=== PATIENT | female | born 1995 | race Caucasian/White ===

== ENCOUNTER 2018-02-05 17:42 | Emergency (ER) | payer OTHER ==
[2018-02-05 17:57] VITALS: RESP 18
[2018-02-05 18:54] LABS: Basophils % (A) 0 %; Eosinophils % (A) 1 %; HCT 38.2 % (34.0-46.0); HGB 13.2 gm/dL (11.4-16.0); Lymphocytes # (A) 1.3 k/uL (1.0-4.8); Lymphocytes % (A) 18 %; MCH 29.4 pg (25.0-35.0); MCHC 34.5 g/dL (31.0-37.0); MCV 85.3 fL (80.0-100.0); Mean Platelet Volume 8.1; Monocytes # (A) 0.3 k/uL (0-1.0); Monocytes % (A) 5 %; Neutrophils # (A) 5.4 k/uL (1.3-7.7); Neutrophils % (A) 75 %; Platelet Count 213 k/uL (150-450); RBC 4.48 m/uL (3.80-5.40); RDW 12.8 % (11.5-15.5); WBC 7.1 k/uL (3.8-10.6)
[2018-02-05 18:55] LABS: Appearance,Urine Cloudy (Clear); Bacteria,Urine Occasional /hpf; Bilirubin,Urine Negative (Negative); Blood,Urine Negative (Negative); Color,Urine Yellow; Glucose,Urine (UA) Negative (Negative); Ketones,Urine 2+ (Negative); Leukocyte Esterase,Urine Small (Negative); Mucus,Urine Rare /hpf; Nitrite,Urine Negative (Negative); Protein,Urine Negative (Negative); RBC,Urine 1 /hpf (0-5); Specific Gravity,Urine 1.019 (1.001-1.035); Squamous Epithelial Cell,Urine 11 /hpf (0-4); Urobilinogen,Urine <2.0 mg/dL (<2.0); WBC,Urine 3 /hpf (0-5)
[2018-02-05 19:05] LABS: ALT 28 U/L (9-52); AST 22 U/L (14-36); Albumin 4.3 g/dL (3.5-5.0); Alkaline Phosphatase 56 U/L (38-126); Anion Gap 11 mmol/L; Blood Urea Nitrogen 8 mg/dL (7-17); Calcium 10.3 mg/dL (8.4-10.2); Carbon Dioxide 20 mmol/L (22-30); Chloride 107 mmol/L (98-107); Glucose 81 mg/dL (74-99); Potassium 3.9 mmol/L (3.5-5.1); Sodium 138 mmol/L (137-145); Total Bilirubin 0.5 mg/dL (0.2-1.3); Total Protein 7.3 g/dL (6.3-8.2)
--- NOTE | 2018-02-05 19:06 | US ---
EXAMINATION TYPE: Transabdominal DATE OF EXAM: 09/15/17 COMPARISON: NONE CLINICAL HISTORY: Pain. Cramping, spotting, unknown LMP EXAM PERFORMED: EXAM MEASUREMENTS: GESTATIONAL AGE / DATING Dates by LMP: LMP unknown Dates by Current Scan for: ( 9 weeks/0 days) EDC: 09/10/2018 MATERNAL ANATOMY Uterus: 10.7 x 8.6 x 7.3 cm Right Ovary: 3.0 x 1.4 x 1.4 cm Left Ovary: 3.2 x 1.6 x 1.4 cm Post CDS / Adnexa: no free fluid Presence of free fluid: no Presence of corpus luteal cyst: no Presence of subchorionic bleed: no GESTATION / SURVEY CRL: 2.3 cm (9 weeks/0 days) MSD: seen, not measured Yolk Sac (normal less than 6mm): 3.5 mm Heart Rate: 170 bpm Rhythm: Normal IUP: Viable IUP Date of LMP: Unknown LMP, Beta HcG (if available): Not available at this time Single live IUP measuring 9 weeks 0 days IMPRESSION: The ultrasound gestational age is 9 weeks. No complicating process seen.
--- NOTE | 2018-02-05 19:23 | ED ---
Female Urogenital HPI - General Chief complaint: Vaginal Bleeding Stated complaint: Bleeding/cramping/9 wks Time Seen by Provider: 02/05/18 18:05 Source: patient, RN notes reviewed, old records reviewed Mode of arrival: ambulatory Limitations: no limitations - History of Present Illness Initial comments: 23-year-old female presents emergency department today with chief complaint of cramping. She reports she is in weeks was concerned. She does have some minor vaginal bleeding 2 days ago. Patient has had no fevers or chills. Denies any urinary symptoms. Patient has had no [facility] care to this point. She is planned to see Dr. Shen. - Related Data Allergies Allergy/AdvReac Type Severity Reaction Status Date / Time No Known Allergies Allergy Verified 02/05/18 17:55 Review of Systems ROS Statement: Those systems with pertinent positive or pertinent negative responses have been documented in the HPI. ROS Other: All systems not noted in ROS Statement are negative. Past Medical History Past Medical History: No Reported History History of Any Multi-Drug Resistant Organisms: None Reported Past Surgical History: No Surgical Hx Reported Past Psychological History: No Psychological Hx Reported Smoking Status: Never smoker Past Alcohol Use History: None Reported Past Drug Use History: None Reported General Exam - General Exam Comments Initial Comments: 23-year-old female. Alert and oriented. No acute distress. Limitations: no limitations General appearance: alert, in no apparent distress Head exam: Present: atraumatic, normocephalic, normal inspection Eye exam: Present: normal appearance, PERRL, EOMI. Absent: scleral icterus, conjunctival injection, periorbital swelling ENT exam: Present: normal exam, mucous membranes moist Neck exam: Present: normal inspection. Absent: tenderness, meningismus, lymphadenopathy Respiratory exam: Present: normal lung sounds bilaterally. Absent: respiratory distress, wheezes, rales, rhonchi, stridor Cardiovascular Exam: Present: regular rate, normal rhythm, normal heart sounds. Absent: systolic murmur, diastolic murmur, rubs, gallop, clicks GI/Abdominal exam: Present: soft, normal bowel sounds. Absent: distended, tenderness, guarding, rebound, rigid External exam: Present: normal external exam. Absent: ecchymosis Speculum exam: Present: normal speculum exam. Absent: erythema, vaginal discharge, cervical discharge, foreign body By manual exam: Present: normal by manual exam. Absent: cervical motion tenderness, adnexal tenderness, adnexal mass Extremities exam: Present: normal inspection, full ROM, normal capillary refill. Absent: tenderness, pedal edema, joint swelling, calf tenderness Back exam: Present: normal inspection Neurological exam: Present: alert, oriented X3, CN II-XII intact Psychiatric exam: Present: normal affect, normal mood Skin exam: Present: warm, dry, intact, normal color. 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 She is approximately 9 weeks . Patient is a Patient. Patient has no evidence of bleeding on pelvic exam. No tenderness. Cultures were obtained. Patient does have no abdominal tenderness. Urinalysis is negative for infection. She is Rh- however she has no bleeding at this time. Currently not concern for miscarriage, but with history of bleeding we will give patient Rhogam at this time.. Heart rate was within normal limits of the fetus. This time I'll discharge the Patient follow- up with [facility]. I did call on discussed case with her. Discussed close follow-up with PCP and OB. All QUESTIONS answered return parameters were discussed. - Lab Data Result diagrams: 02/05/18 16:00 02/05/18 16:00 Lab Results 02/05/18 02/05/18 02/05/18 Range/Units 16:00 16:00 16:00 WBC 7.1 (3.8-10.6) k/uL RBC 4.48 (3.80-5.40) m/uL Hgb 13.2 (11.4-16.0) gm/dL Hct 38.2 (34.0-46.0) % MCV 85.3 (80.0-100.0) fL MCH 29.4 (25.0-35.0) pg MCHC 34.5 (31.0-37.0) g/dL RDW 12.8 (11.5-15.5) % Plt Count 213 (150-450) k/uL Neutrophils % 75 % Lymphocytes % 18 % Monocytes % 5 % Eosinophils % 1 % Basophils % 0 % Neutrophils # 5.4 (1.3-7.7) k/uL Lymphocytes # 1.3 (1.0-4.8) k/uL Monocytes # 0.3 (0-1.0) k/uL Eosinophils # 0.0 (0-0.7) k/uL Basophils # 0.0 (0-0.2) k/uL Sodium 138 (137-145) mmol/L Potassium 3.9 (3.5-5.1) mmol/L Chloride 107 (98-107) mmol/L Carbon Dioxide 20 L (22-30) mmol/L Anion Gap 11 mmol/L BUN 8 (7-17) mg/dL Creatinine 0.50 L (0.52-1.04) mg/dL Est GFR (CKD-EPI)AfAm >90 (>60 ml/min/1.73 sqM) Est GFR (CKD-EPI)NonAf >90 (>60 ml/min/1.73 sqM) Glucose 81 (74-99) mg/dL Calcium 10.3 H (8.4-10.2) mg/dL Total Bilirubin 0.5 (0.2-1.3) mg/dL AST 22 (14-36) U/L ALT 28 (9-52) U/L Alkaline Phosphatase 56 (38-126) U/L Total Protein 7.3 (6.3-8.2) g/dL Albumin 4.3 (3.5-5.0) g/dL HCG, Quant >356110.0 mIU/mL Urine Color Urine Appearance (Clear) Urine pH (5.0-8.0) Ur Specific [place] (1.001-1.035) Urine Protein (Negative) Urine Glucose (UA) (Negative) Urine Ketones (Negative) Urine Blood (Negative) Urine Nitrite (Negative) Urine Bilirubin (Negative) Urine Urobilinogen (<2.0) mg/dL Ur Leukocyte Esterase (Negative) Urine RBC (0-5) /hpf Urine WBC (0-5) /hpf Ur Squamous Epith Cells (0-4) /hpf Urine Bacteria (None) /hpf Urine Mucus (None) /hpf Trichomonas Ag (Rapid) (Negative) Blood Type A Negative Blood Type Recheck [facility] ONLY Antibody Screen 02/05/18 02/05/18 02/05/18 Range/Units 16:00 19:30 20:50 WBC (3.8-10.6) k/uL RBC (3.80-5.40) m/uL Hgb (11.4-16.0) gm/dL Hct (34.0-46.0) % MCV (80.0-100.0) fL MCH (25.0-35.0) pg MCHC (31.0-37.0) g/dL RDW (11.5-15.5) % Plt Count (150-450) k/uL Neutrophils % % Lymphocytes % % Monocytes % % Eosinophils % % Basophils % % Neutrophils # (1.3-7.7) k/uL Lymphocytes # (1.0-4.8) k/uL Monocytes # (0-1.0) k/uL Eosinophils # (0-0.7) k/uL Basophils # (0-0.2) k/uL Sodium (137-145) mmol/L Potassium (3.5-5.1) mmol/L Chloride (98-107) mmol/L Carbon Dioxide (22-30) mmol/L Anion Gap mmol/L BUN (7-17) mg/dL Creatinine (0.52-1.04) mg/dL Est GFR (CKD-EPI)AfAm (>60 ml/min/1.73 sqM) Est GFR (CKD-EPI)NonAf (>60 ml/min/1.73 sqM) Glucose (74-99) mg/dL Calcium (8.4-10.2) mg/dL Total Bilirubin (0.2-1.3) mg/dL AST (14-36) U/L ALT (9-52) U/L Alkaline Phosphatase (38-126) U/L Total Protein (6.3-8.2) g/dL Albumin (3.5-5.0) g/dL HCG, Quant mIU/mL Urine Color Yellow Urine Appearance Cloudy H (Clear) Urine pH 6.0 (5.0-8.0) Ur Specific [place] 1.019 (1.001-1.035) Urine Protein Negative (Negative) Urine Glucose (UA) Negative (Negative) Urine Ketones 2+ H (Negative) Urine Blood Negative (Negative) Urine Nitrite Negative (Negative) Urine Bilirubin Negative (Negative) Urine Urobilinogen <2.0 (<2.0) mg/dL Ur Leukocyte Esterase Small H (Negative) Urine RBC 1 (0-5) /hpf Urine WBC 3 (0-5) /hpf Ur Squamous Epith Cells 11 H (0-4) /hpf Urine Bacteria Occasional H (None) /hpf Urine Mucus Rare H (None) /hpf Trichomonas Ag (Rapid) Negative (Negative) Blood Type Blood Type Recheck Antibody Screen NEGATIVE - Radiology Data Radiology results: report reviewed Similar transient measuring 9 weeks. No evidence of palpating process at this time. Disposition Clinical Impression: Abdominal cramping affecting Disposition: HOME SELF-CARE Condition: Good Instructions: Abdominal Pain in (ED) Additional Instructions: Patient has follow-up with [facility]. Patient can repeat her hCG levels there is any further bleeding. Return to emergency department if any alarming signs or symptoms occur. Is patient prescribed a controlled substance at d/c from ED?: No Referrals: None,Stated [Primary Care Provider] - 1-2 days Tal Soria MD [STAFF PHYSICIAN] - 1-2 days Time of Disposition: 19:56
[2018-02-05 20:11] LABS: HCG,Quantitative Serum >225000.0 mIU/mL
[2018-02-05] MEDS ORDERED: Rhogam IMMUNE GLOBULIN 1,500 UNIT/1 ML IM ONE (20:19)
[2018-02-05 21:34] VITALS: BP 141/66; PULSE 77; TEMP 97.8
[2018-02-07 14:10] LABS: C. trachomatis,PCR Negative (Neg,Equiv); Chlamydia trachomatis Source Urine; N. gonorrhoeae,PCR Negative (Neg,Equiv); Neisseria Source Urine
== END 2018-02-05 21:42 | disposition home or self-care (01) ==
LOC: EC 17:42
DX: O26.891 Other specified pregnancy related conditions, first trimester (principal); R10.2 Pelvic and perineal pain; Z67.91 Unspecified blood type, Rh negative; Z3A.09 9 weeks gestation of pregnancy
CPT/HCPCS: 36415; 86900; 86901; 80053; 85025; 86850; 81001; 84702; 87808; 87491; 87591; 87070; 87205; 76801; 99284; 90384; 96372; J2791

== ENCOUNTER 2018-03-26 08:30 | Emergency (ER) | payer OTHER ==
[2018-03-26 08:50] VITALS: RESP 18
--- NOTE | 2018-03-26 09:01 | ED ---
Abdominal Pain HPI - General Chief Complaint: Abdominal Pain Stated Complaint: cramping,16wks preg Time Seen by Provider: 03/26/18 08:51 Source: patient, RN notes reviewed Mode of arrival: ambulatory Limitations: no limitations - History of Present Illness Initial Comments: This a 23-year-old female presents emergency Department chief complaint of lower abdominal pain. She states she had mild pain last night and some pain today. Patient has no vaginal bleeding or vaginal discharge. Patient states that she is 81 states approximate 16 weeks . Her [employer] is Dr. Shen. Patient states that she does have mild dysuria no increased urinary frequency no flank pain no fever or chills. She's had no nausea vomiting diarrhea. She has had mild constipation which is no the usual. - Related Data Home Medications Medication Instructions Recorded Confirmed Pnv No.95/Ferrous Fum/Folic AC 1 tab PO DAILY 03/26/18 03/26/18 [ Multivitamin Tablet] Previous Rx's Medication Instructions Recorded Nitrofurantoin Monohyd/M-Cryst 100 mg PO Q12HR #10 cap 03/26/18 [Macrobid] Allergies Allergy/AdvReac Type Severity Reaction Status Date / Time No Known Allergies Allergy Verified 03/26/18 09:01 Review of Systems ROS Statement: Those systems with pertinent positive or pertinent negative responses have been documented in the HPI. ROS Other: All systems not noted in ROS Statement are negative. Past Medical History Past Medical History: No Reported History History of Any Multi-Drug Resistant Organisms: None Reported Past Surgical History: No Surgical Hx Reported Past Psychological History: No Psychological Hx Reported Smoking Status: Never smoker Past Alcohol Use History: None Reported Past Drug Use History: None Reported General Exam Limitations: no limitations General appearance: alert, in no apparent distress Head exam: Present: atraumatic, normocephalic, normal inspection Eye exam: Present: normal appearance, PERRL, EOMI. Absent: scleral icterus, conjunctival injection, periorbital swelling ENT exam: Present: mucous membranes moist Respiratory exam: Present: normal lung sounds bilaterally. Absent: respiratory distress, wheezes, rales, rhonchi, stridor Cardiovascular Exam: Present: regular rate, normal rhythm, normal heart sounds. Absent: systolic murmur, diastolic murmur, rubs, gallop, clicks GI/Abdominal exam: Present: soft, tenderness (Minimal suprapubic tenderness), normal bowel sounds. Absent: distended, guarding, rebound, rigid Back exam: Absent: CVA tenderness (R), CVA tenderness (L) Skin exam: Present: warm, dry, intact, normal color. Absent: rash Course Vital Signs 03/26/18 08:48 Temperature 98.0 F Pulse Rate 88 Respiratory 18 Rate Blood Pressure 126/78 O2 Sat by Pulse 100 Oximetry Medical Decision Making - Medical Decision Making 23-year-old female presented emergency from for low abdominal . Patient has normal heart rate. Patient has asymptomatic bacteriuria. Patient we treated for this. Patient's labwork otherwise normal. Patient will follow-up with [employer] [facility] no vaginal bleeding no vaginal discharge. - Lab Data Result diagrams: 03/26/18 09:48 03/26/18 09:48 Lab Results 03/26/18 03/26/18 03/26/18 Range/Units 09:03 09:48 09:48 WBC 5.7 (3.8-10.6) k/uL RBC 3.97 (3.80-5.40) m/uL Hgb 11.7 (11.4-16.0) gm/dL Hct 34.4 (34.0-46.0) % MCV 86.8 (80.0-100.0) fL MCH 29.5 (25.0-35.0) pg MCHC 33.9 (31.0-37.0) g/dL RDW 14.0 (11.5-15.5) % Plt Count 193 (150-450) k/uL Neutrophils % 71 % Lymphocytes % 22 % Monocytes % 4 % Eosinophils % 1 % Basophils % 0 % Neutrophils # 4.1 (1.3-7.7) k/uL Lymphocytes # 1.3 (1.0-4.8) k/uL Monocytes # 0.3 (0-1.0) k/uL Eosinophils # 0.1 (0-0.7) k/uL Basophils # 0.0 (0-0.2) k/uL Sodium 140 (137-145) mmol/L Potassium 4.1 (3.5-5.1) mmol/L Chloride 108 H (98-107) mmol/L Carbon Dioxide 24 (22-30) mmol/L Anion Gap 8 mmol/L BUN 12 (7-17) mg/dL Creatinine 0.51 L (0.52-1.04) mg/dL Est GFR (CKD-EPI)AfAm >90 (>60 ml/min/1.73 sqM) Est GFR (CKD-EPI)NonAf >90 (>60 ml/min/1.73 sqM) Glucose 80 (74-99) mg/dL Calcium 9.2 (8.4-10.2) mg/dL Total Bilirubin 0.4 (0.2-1.3) mg/dL AST 24 (14-36) U/L ALT 31 (9-52) U/L Alkaline Phosphatase 43 (38-126) U/L Total Protein 6.5 (6.3-8.2) g/dL Albumin 3.5 (3.5-5.0) g/dL Urine Color Yellow Urine Appearance Cloudy H (Clear) Urine pH 6.5 (5.0-8.0) Ur Specific [place] 1.016 (1.001-1.035) Urine Protein Negative (Negative) Urine Glucose (UA) Negative (Negative) Urine Ketones Negative (Negative) Urine Blood Negative (Negative) Urine Nitrite Negative (Negative) Urine Bilirubin Negative (Negative) Urine Urobilinogen <2.0 (<2.0) mg/dL Ur Leukocyte Esterase Negative (Negative) Urine WBC 1 (0-5) /hpf Ur Squamous Epith Cells 8 H (0-4) /hpf Amorphous Sediment Rare H (None) /hpf Urine Bacteria Rare H (None) /hpf Urine Mucus Rare H (None) /hpf Disposition Clinical Impression: Asymptomatic bacteriuria during , Abdominal pain during Disposition: HOME SELF-CARE Condition: Stable Instructions: Abdominal Pain in (ED) Additional Instructions: Please return to the Emergency Department if symptoms worsen or any other concerns. Prescriptions: Nitrofurantoin Monohyd/M-Cryst [Macrobid] 100 mg PO Q12HR #10 cap Is patient prescribed a controlled substance at d/c from ED?: No Referrals: None,Stated [Primary Care Provider] - 1-2 days Time of Disposition: 10:17
[2018-03-26 09:27] LABS: Amorphous Sediment,Urine Rare /hpf; Appearance,Urine Cloudy (Clear); Bacteria,Urine Rare /hpf; Bilirubin,Urine Negative (Negative); Blood,Urine Negative (Negative); Color,Urine Yellow; Glucose,Urine (UA) Negative (Negative); Ketones,Urine Negative (Negative); Leukocyte Esterase,Urine Negative (Negative); Mucus,Urine Rare /hpf; Nitrite,Urine Negative (Negative); PH, Urine 6.5 (5.0-8.0); Protein,Urine Negative (Negative); Specific Gravity,Urine 1.016 (1.001-1.035); Squamous Epithelial Cell,Urine 8 /hpf (0-4); Urobilinogen,Urine <2.0 mg/dL (<2.0); WBC,Urine 1 /hpf (0-5)
[2018-03-26 10:02] LABS: Basophils % (A) 0 %; Eosinophils # (A) 0.1 k/uL (0-0.7); Eosinophils % (A) 1 %; HCT 34.4 % (34.0-46.0); HGB 11.7 gm/dL (11.4-16.0); Lymphocytes # (A) 1.3 k/uL (1.0-4.8); Lymphocytes % (A) 22 %; MCH 29.5 pg (25.0-35.0); MCHC 33.9 g/dL (31.0-37.0); MCV 86.8 fL (80.0-100.0); Mean Platelet Volume 7.8; Monocytes # (A) 0.3 k/uL (0-1.0); Monocytes % (A) 4 %; Neutrophils # (A) 4.1 k/uL (1.3-7.7); Neutrophils % (A) 71 %; Platelet Count 193 k/uL (150-450); RBC 3.97 m/uL (3.80-5.40); WBC 5.7 k/uL (3.8-10.6)
[2018-03-26 10:13] LABS: ALT 31 U/L (9-52); AST 24 U/L (14-36); Albumin 3.5 g/dL (3.5-5.0); Alkaline Phosphatase 43 U/L (38-126); Anion Gap 8 mmol/L; Blood Urea Nitrogen 12 mg/dL (7-17); Calcium 9.2 mg/dL (8.4-10.2); Carbon Dioxide 24 mmol/L (22-30); Chloride 108 mmol/L (98-107); Glucose 80 mg/dL (74-99); Potassium 4.1 mmol/L (3.5-5.1); Sodium 140 mmol/L (137-145); Total Bilirubin 0.4 mg/dL (0.2-1.3); Total Protein 6.5 g/dL (6.3-8.2)
[2018-03-26 10:23] VITALS: BP 126/57; PULSE 70; TEMP 98.8
== END 2018-03-26 10:23 | disposition home or self-care (01) ==
LOC: EC 08:30
DX: O23.42 Unspecified infection of urinary tract in pregnancy, second trimester (principal); O26.892 Other specified pregnancy related conditions, second trimester; R10.30 Lower abdominal pain, unspecified; Z3A.16 16 weeks gestation of pregnancy
CPT/HCPCS: 36415; 80053; 81001; 85025; 99284

== ENCOUNTER 2018-04-27 16:38 | Outpatient (CLI) | payer OTHER ==
[2018-04-27 17:21] VITALS: BP 126/69; PULSE 111; RESP 16; TEMP 98.1
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
--- NOTE | 2018-04-27 18:34 | US ---
EXAMINATION TYPE: US OB >= 14 wk fetus DATE OF EXAM: 04/27/2018 COMPARISON: US 2017 CLINICAL HISTORY: pt fell, complete ob u/s ordered per physicianPatient fell today, pelvic cramping s lalo fall, 3, para 1, 1. TECHNIQUE: Transabdominal (TA) GESTATIONAL AGE / DATING Physician Established: (20 weeks/4 days) EDC: 09/10/2018 Dates by LMP: Unknown Dates by First Scan: (20 weeks/4 days) EDC: 09/10/2018 Dates by Current Scan: (20 weeks/4 days) EDC: 09/10/2018 SURVEY IUP: Single PLACENTA: Posterior/Fundal PREVIA: No Previa ERI: 12.3 cm Normal CERVICAL LENGTH (transabdominal: norm > 3.0cm): 3.5 cm BIOMETRY PRESENTATION: Vertex LIE: Longitudinal BPD: 4.9 cm 20 weeks / 5 days HC: 18.5 cm 20 weeks / 6 days AC: 15.8 cm 21 weeks / 0 days FL: 3.4 cm 20 weeks / 6 days ESTIMATED WEIGHT IN GRAMS: 384 grams ESTIMATED WEIGHT IN LBS/OZ: 0 lbs. 14 oz. WEIGHT PERCENTAGE BASED ON ESTABLISHED DATES: 63% HC/AC: 1.16 Normal FL/AC: 21.69 HEART RATE: 159 bpm RHYTHM: Normal IMPRESSION: VIABLE SINGLE IUP MEASURING 20 WEEKS 4 DAYS WITH HEART RATE 159 BPM AND ESTIMATED DELIVERY DATE 09/10.
== END 2018-04-27 17:54 | disposition home or self-care (01) ==
LOC: FBPOP 16:38
PROVIDERS: ATTEND Obstetrics & Gynecology
DX: O99.89 Other specified diseases and conditions complicating pregnancy, childbirth and the puerperium (principal); G89.11 Acute pain due to trauma; Z3A.20 20 weeks gestation of pregnancy
CPT/HCPCS: 76805; G0463; 99213

== ENCOUNTER 2018-09-06 05:41 | Inpatient (IN) | payer OTHER ==
[2018-09-06] MEDS ORDERED: CARBOPROST TROMETHAMINE 250 MCG/ML 1 ML AMP IM PRN (05:55)
[2018-09-06] MEDS ORDERED: OXYTOCIN 10 UNIT/ML 1 ML VIAL IM PRN (05:55)
[2018-09-06] MEDS ORDERED: TERBUTALINE 1 MG/ML VIAL SQ PRN (05:55)
[2018-09-06] MEDS ORDERED: METHYLERGONOVINE 0.2 MG/ML 1 ML AMP IM PRN (05:55)
[2018-09-06] MEDS ORDERED: LIDOCAINE 0.5% (PF) 5 MG/ML (50 ML SDV) SQ PRN (05:55)
[2018-09-06] MEDS ORDERED: OXYTOCIN 30 UNITS/500 ML NS 30 UNIT in SALINE 1 500ML.BAG IV SCH (06:00)
[2018-09-06] MEDS: LACTATED RINGERS 1,000 ML IV SCH ×2 (06:02→18:56)
[2018-09-06 06:14] VITALS: BMI 64.4
[2018-09-06 06:46] LABS: Basophils % (A) 0 %; Eosinophils # (A) 0.1 k/uL (0-0.7); Eosinophils % (A) 1 %; HCT 35.3 % (34.0-46.0); HGB 11.9 gm/dL (11.4-16.0); Lymphocytes # (A) 1.4 k/uL (1.0-4.8); Lymphocytes % (A) 19 %; MCH 29.8 pg (25.0-35.0); MCHC 33.8 g/dL (31.0-37.0); MCV 88.2 fL (80.0-100.0); Mean Platelet Volume 9.3; Monocytes # (A) 0.6 k/uL (0-1.0); Monocytes % (A) 8 %; Neutrophils # (A) 5.1 k/uL (1.3-7.7); Neutrophils % (A) 70 %; Platelet Count 149 k/uL (150-450); RDW 14.8 % (11.5-15.5); WBC 7.4 k/uL (3.8-10.6)
[2018-09-06] MEDS ORDERED: LANOLIN CREAM 5 GM TUBE TOPICAL PRN (06:51)
[2018-09-06] MEDS ORDERED: ACETAMINOPHEN TAB 325 MG TAB PO PRN (06:51)
[2018-09-06] MEDS ORDERED: ZOLPIDEM 5 MG TAB PO PRN (06:51)
[2018-09-06] MEDS ORDERED: diphenhydrAMINE 25 MG CAP PO PRN (06:51)
[2018-09-06] MEDS ORDERED: diphenhydrAMINE 50 MG/ML 1 ML VIAL IVP PRN ×2 (06:51)
[2018-09-06] MEDS ORDERED: WITCH HAZEL 1 EACH MED..PAD TOPICAL PRN (06:51)
[2018-09-06] MEDS ORDERED: diphenhydrAMINE 50 MG CAP PO PRN (06:51)
[2018-09-06] MEDS ORDERED: HYDROCORTISONE 2.5% RECTAL CREAM 30 GM TUBE RECTAL PRN (06:51)
[2018-09-06] MEDS ORDERED: SIMETHICONE 80 MG CHEWABLE PO PRN (06:51)
[2018-09-06] MEDS ORDERED: BENZOCAINE/MENTHOL SPRAY 1 GM/SPRAY AEROSOL TOPICAL PRN (06:51)
--- NOTE | 2018-09-06 06:56 | P.HPOB ---
History of Present Illness H&P Date: 09/06/18 Chief Complaint: Normal labor 23 [facility] Her cervix is 8-9 cm dilated, 90% effaced, and -1 station. She was jose every 2-4 minutes. heart tones 130 135 with moderate variability and reactive. Review of Systems All systems: negative Constitutional: Denies chills, Denies fever Eyes: denies blurred vision, denies pain Ears, nose, mouth and throat: Denies headache, Denies sore throat Cardiovascular: Denies chest pain, Denies shortness of breath Respiratory: Denies cough Gastrointestinal: Denies abdominal pain, Denies diarrhea, Denies nausea, Denies vomiting Genitourinary: Denies dysuria, Denies hematuria Musculoskeletal: Denies myalgias Integumentary: Denies pruritus, Denies rash Neurological: Denies numbness, Denies weakness Psychiatric: Denies anxiety, Denies depression Endocrine: Denies fatigue, Denies weight change Past Medical History Past Medical History: No Reported History Additional Past Medical History / Comment(s): Obstetric history: First was a termination, second was a vaginal delivery 7 pounds at 38 weeks. This is her third . She has had care with Dr. Shen since 12 weeks gestation. she also did see maternal medicine for her when doing positive for factor V Leiden and history of preeclampsia with her first pregn ray. She's been on a baby aspirin daily for the preeclampsia history. Abnormal 1 hour, normal 3 hour. Blood type A-, antibodies negative, rubella immune, hepatitis B negative, RPR nonreactive, GBS negative. History of Any Multi-Drug Resistant Organisms: None Reported Past Surgical History: No Surgical Hx Reported Past Psychological History: No Psychological Hx Reported Smoking Status: Never smoker Past Alcohol Use History: None Reported Past Drug Use History: None Reported - Past Family History Father Family Medical History: No Reported History Medications and Allergies Home Medications Medication Instructions Recorded Confirmed Type Pnv No.95/Ferrous Fum/Folic AC 1 tab PO DAILY 03/26/18 09/06/18 History [ Multivitamin Tablet] Aspirin [Children's Aspirin] 81 mg PO DAILY 04/27/18 09/06/18 History Allergies Allergy/AdvReac Type Severity Reaction Status Date / Time No Known Allergies Allergy Verified 04/27/18 17:12 Exam Osteopathic Statement: *. No significant issues noted on an osteopathic structural exam other than those noted in the History and Physical/Consult. Vital Signs Temp Pulse Resp BP Pulse Ox 09/06/18 06:40 97.7 F 106 H 16 137/69 09/06/18 05:59 96.9 F L 95 16 144/87 100 Intake and Output 09/05/18 09/05/18 09/06/18 14:59 22:59 06:59 Other: Weight 175.6 kg Heart: Regular rate and rhythm Lungs: Clear to auscultation bilaterally Abdomen: Soft, nontender Extremities: Negative Homans sign Results Result Diagrams: 09/06/18 06:00 Abnormal Lab Results - Last 24 Hours (Table) 09/06/18 Range/Units 06:00 Plt Count 149 L (150-450) k/uL Assessment and Plan (1) Normal labor Current Visit: Yes Status: Acute Code(s): O80 - ENCOUNTER FOR FULL-TERM UNCOMPLICATED DELIVERY; Z37.9 - OUTCOME OF DELIVERY, UNSPECIFIED SNOMED Co de(s): 59916839 (2) History of pre-eclampsia in prior , currently Current Visit: Yes Status: Acute Code(s): O09.299 - SUPRVSN OF PREG W POOR REPRODCTV OR OBSTET HISTORY, UNSP TRI SNOMED Code(s): 381433089301976 Plan: 1. Admit to family place 2. Expectant management 3. Anticipate normal vaginal delivery
--- NOTE | 2018-09-06 06:58 | P.PROBDLV ---
Vaginal Delivery Note - . Vaginal Delivery Note: 23 year old presented to [facility] complaining of contractions. Her cervix is 8-9 cm dilated, 90% effaced, and -1 station. She was jose every 2-4 minutes. heart tones 130 135 with moderate variability and reactive. Soon after she was admitted around 6:15 AM amniotomy was performed and scant clear fluid was seen. Her cervix was completely dilated at 6:21 AM, she pushed and delivered a viable male infant over intact perineum at 6:31 AM. Head delivered OA, anterior shoulder which was the left shoulder delivered gentle downward guidance followed by posterior shoulder and rest of body. Nose and mouth bulb suctioned, cord clamped and cut, infant placed mother's abdomen. Apgars 9, 9, weight 8 pounds 9.9 ounces. Placenta delivered spontaneously, intact with three-vessel cord at 6:34 AM. Vagina, cervix, and perineum were inspected. No lacerations noted. Estimated blood loss 200 mL.
[2018-09-06] MEDS ORDERED: OXYTOCIN 20 UNITS/1000 ML NS 1,000 ML IV SCH (07:00)
[2018-09-06] MEDS: IBUPROFEN 600 MG TAB PO PRN ×2 (08:32→16:48)
[2018-09-06] MEDS: SENNOSIDES-DOCUSATE SODIUM 1 EACH TAB PO SCH ×2 (11:34→20:30)
[2018-09-06] MEDS ORDERED: Rhogam IMMUNE GLOBULIN 1,500 UNIT/1 ML IM ONE (14:13)
[2018-09-07] MEDS: IBUPROFEN 600 MG TAB PO PRN ×2 (03:33→08:03)
[2018-09-07] MEDS: SENNOSIDES-DOCUSATE SODIUM 1 EACH TAB PO SCH (08:04)
--- NOTE | 2018-09-07 08:45 | P.DS ---
Providers Date of admission: 09/06/18 05:58 Expected date of discharge: 09/07/18 Attending physician: Tanisha Shen Primary care physician: Stated None - Discharge Diagnosis(es) (1) Normal labor Current Visit: Yes Status: Resolved (2) History of pre-eclampsia in prior , currently Current Visit: Yes Status: Resolved (3) Status post normal vaginal delivery Current Visit: Yes Status: Acute Hospital Course: Patient presented in active labor. She underwent normal vaginal delivery. Her post course uncomplicated. She'll be discharged home day #[address] Shen in 6 weeks. Plan - Discharge Summary New Discharge Prescriptions: New Ibuprofen [Motrin] 600 mg PO Q6HR PRN #30 tab PRN Reason: Mild Pain Or Fever >= 100.5 No Action Pnv No.95/Ferrous Fum/Folic AC [ Multivitamin Tablet] 1 tab PO DAILY Aspirin [Children's Aspirin] 81 mg PO DAILY Discharge Medication List Pnv No.95/Ferrous Fum/Folic AC [ Multivitamin Tablet] 1 tab PO DAILY 03/26/18 [History] Aspirin [Children's Aspirin] 81 mg PO DAILY 04/27/18 [History] Ibuprofen [Motrin] 600 mg PO Q6HR PRN #30 tab 09/07/18 [Rx] Follow up Appointment(s)/Referral(s): Tanisha Shen DO [Doctor of Osteopathic Medicine] - 6 Weeks Discharge Disposition: HOME SELF-CARE
[2018-09-07 11:34] VITALS: BP 133/85; PULSE 84; RESP 16; TEMP 97.9
== END 2018-09-07 13:10 | disposition home or self-care (01) | DRG 806 ==
LOC: FBPOP 05:41 → 4FBP 05:58
PROVIDERS: ADMIT Obstetrics & Gynecology; ATTEND Obstetrics & Gynecology
PROC: 10E0XZZ Delivery of Products of Conception, External Approach (ICD-10-PCS; principal; 2018-09-06)
DX: O99.12 Other diseases of the blood and blood-forming organs and certain disorders involving the immune mechanism complicating childbirth (principal); D68.51 Activated protein C resistance; Z37.0 Single live birth; Z3A.39 39 weeks gestation of pregnancy; Z79.82 Long term (current) use of aspirin; Z87.59 Personal history of other complications of pregnancy, childbirth and the puerperium
CPT/HCPCS: 85025; 85461; 86850; 86900; 86901; 99213

== ENCOUNTER 2018-09-14 21:51 | Emergency (ER) | payer OTHER ==
[2018-09-14] MEDS ORDERED: AMOXIC-POT CLAV 875-125MG 1 EACH TAB PO STA (23:05)
--- NOTE | 2018-09-14 23:14 | ED ---
General Adult HPI - General Chief complaint: Skin/Abscess/Foreign Body Stated complaint: Poss infection in breast Time Seen by Provider: 09/14/18 22:51 Source: patient Mode of arrival: ambulatory Limitations: no limitations - History of Present Illness Initial comments: This 23-year-old white female presents with a complaint of some right breast pain and swelling. She states that it started approximately 4 PM tonight. She states that she's had decreased milk production as well. She had a temperature at home of 102. She had a temperature here initially of 101. She just had her baby approximately 5 days ago. She has not been breast-feeding but she has been pumping. She had some slight leakage of milk while in the ER in her breasts felt improved. She denies any previous similar incidents. No other complaints or modifying factors. - Related Data Home Medications Medication Instructions Recorded Confirmed Pnv No.95/Ferrous Fum/Folic AC 1 tab PO DAILY 03/26/18 09/14/18 [ Multivitamin Tablet] Ibuprofen [Motrin] 600 mg PO Q8HR PRN 09/14/18 09/14/18 Previous Rx's Medication Instructions Recorded Amoxic-Pot Clav 875-125Mg 1 each PO Q12HR #20 tablet 09/14/18 [Augmentin Xr 875-125] Allergies Allergy/AdvReac Type Severity Reaction Status Date / Time No Known Allergies Allergy Verified 09/14/18 22:37 Review of Systems ROS Statement: Those systems with pertinent positive or pertinent negative responses have been documented in the HPI. ROS Other: All systems not noted in ROS Statement are negative. Past Medical History Past Medical History: No Reported History Additional Past Medical History / Comment(s): Obstetric history: First was a termination, second was a vaginal delivery 7 pounds at 38 weeks. This is her third . She has had care with Dr. Shen since 12 weeks gestation. she also did see maternal medicine for her when doing positive for factor V Leiden and history of preeclampsia with her first . She's been on a baby aspirin daily for the preeclampsia history. Abnormal 1 hour, normal 3 hour. Blood type A-, antibodies negative, rubella immune, hepatitis B negative, RPR nonreactive, GBS negative. History of Any Multi-Drug Resistant Organisms: None Reported Past Surgical History: No Surgical Hx Reported Past Psychological History: No Psychological Hx Reported Smoking Status: Never smoker Past Alcohol Use History: None Reported Past Drug Use History: None Reported - Past Family History Father Family Medical History: No Reported History General Exam Limitations: no limitations General appearance: alert, in no apparent distress Psychiatric exam: Present: normal affect, normal mood Skin exam: Present: other (There is no associated erythema to either breast. There is some tenderness noted upon palpation of the right breast more so on the lateral aspect. There is no palpable abscess identified. There is no drainage.) Course Vital Signs 09/14/18 09/14/18 22:22 22:41 Temperature 100.4 F H 99.7 F H Pulse Rate 112 H 96 Respiratory 20 15 Rate Blood Pressure 157/109 143/103 O2 Sat by Pulse 98 98 Oximetry Medical Decision Making - Medical Decision Making The patient was seen and examined. Breast exam was completed with nurse. They're certainly is some tenderness noted but there does not appear to be any severe swelling or evidence of abscess. It is felt as though she likely does have a degree of mastitis. It is felt as though she benefit from some antibiotic treatment. She is placed on Augmentin. It is felt as though she stable for discharge. She understands agrees with the following disposition and leaves in no distress. Disposition Clinical Impression: Mastitis, Fever Disposition: HOME SELF-CARE Condition: Good Instructions (If sedation given, give patient instructions): Mastitis (ED) Additional Instructions: Please follow-up with your [facility] doctor in the next couple of days. Please take Tylenol if needed for any pain or fever. Prescriptions: Amoxic-Pot Clav 875-125Mg [Augmentin Xr 875-125] 1 each PO Q12HR #20 tablet Is patient prescribed a controlled substance at d/c from ED?: No Referrals: None,Stated [Primary Care Provider] - 1-2 days Time of Disposition: 23:13
[2018-09-14 23:18] VITALS: BP 147/97; PULSE 97; RESP 18; TEMP 99
[2018-09-14] MEDS ORDERED: ACETAMINOPHEN TAB 500 MG TAB PO STA (23:22)
== END 2018-09-14 23:36 | disposition home or self-care (01) ==
LOC: EC 21:51
DX: O91.22 Nonpurulent mastitis associated with the puerperium (principal); O92.4 Hypogalactia
CPT/HCPCS: 99283

== ENCOUNTER 2018-10-07 19:38 | Emergency (ER) | payer OTHER ==
[2018-10-07] MEDS ORDERED: DICLOXACILLIN 250 MG CAPSULE PO STA (19:55)
--- NOTE | 2018-10-07 19:57 | ED ---
Skin/Abscess/FB HPI - General Chief complaint: Skin/Abscess/Foreign Body Stated complaint: poss infection on breast Time Seen by Provider: 10/07/18 19:48 Source: patient Mode of arrival: ambulatory Limitations: no limitations - History of Present Illness Initial comments: 23-year-old female with recent vaginal 4 weeks prior for cc of right breast erythema. Patient states she has had redness and tenderness of the right breast the past 2-3 days. Patient states she has had a fever. Patient states is identical to when she had mastitis 2 weeks prior. Patient states she was treated antibiotics at that time and the symptoms resolved. Patient is currently breast-feeding. Remaining ROS (-), Patient denies any recent shortness of breath, chest pain, back pain, abdominal pain, nausea or vomiting, numbness or tingling, dysuria or hematuria, constipation or diarrhea, headaches or visual changes, or any other complaints. - Related Data Home Medications Medication Instructions Recorded Confirmed Pnv No.95/Ferrous Fum/Folic AC 1 tab PO DAILY 03/26/18 10/07/18 [ Multivitamin Tablet] Ibuprofen [Motrin] 600 mg PO Q8HR PRN 09/14/18 10/07/18 Acetaminophen Tab [Tylenol Tab] 1,000 mg PO Q6HR PRN 10/07/18 10/07/18 Previous Rx's Medication Instructions Recorded Dicloxacillin [Dynapen] 500 mg PO Q6H 10 Days #40 capsule 10/07/18 Allergies Allergy/AdvReac Type Severity Reaction Status Date / Time No Known Allergies Allergy Verified 10/07/18 20:15 Review of Systems ROS Statement: Those systems with pertinent positive or pertinent negative responses have been documented in the HPI. ROS Other: All systems not noted in ROS Statement are negative. Past Medical History Past Medical History: No Reported History Additional Past Medical History / Comment(s): Obstetric history: First was a termination, second was a vaginal delivery 7 pounds at 38 weeks. This is her third . She has had care with Dr. Shen since 12 weeks gestation. she also did see maternal medicine for her when doing positive for factor V Leiden and history of preeclampsia with her first . She's been on a baby aspirin daily for the preeclampsia history. Abnormal 1 hour, normal 3 hour. Blood type A-, antibodies negative, rubella immune, hepatitis B negative, RPR nonreactive, GBS negative. History of Any Multi-Drug Resistant Organisms: None Reported Past Surgical History: No Surgical Hx Reported Past Psychological History: No Psychological Hx Reported Smoking Status: Never smoker Past Alcohol Use History: Occasional Past Drug Use History: None Reported - Past Family History Father Family Medical History: No Reported History General Exam - General Exam Comments Initial Comments: General: The patient is awake and alert, in no distress, and does not appear acutely ill. Eye: Pupils are equal, round and reactive to light, extra-ocular movements are intact. No nystagmus. There is normal conjunctiva bilaterally. No signs of icterus. Ears, nose, mouth and throat: There are moist mucous membranes and no oral lesions. Neck: The neck is supple, there is no tenderness or JVD. Cardiovascular: There is a regular rate and rhythm. No murmur, rub or gallop is appreciated. Respiratory: Lungs are clear to auscultation, respirations are non-labored, breath sounds are equal. No wheezes, stridor, rales, or rhonchi. Gastrointestinal: Soft, non-distended, non-tender abdomen without masses or organomegaly noted. There is no rebound or guarding present. No CVA tenderness. Bowel sounds are unremarkable. Musculoskeletal: Normal ROM, no tenderness. Strength 5/5. Sensation intact. Pulses equal bilaterally 2+. Neurological: A&O x 3. CN II-XII intact, There are no obvious motor or sensory deficits. Coordination appears grossly intact. Speech is normal. Skin: Skin is warm and dry and no rashes or lesions are noted. Breast mildly erythematous at the 8 oclock position, no fluctulance. Warm to palpation. No palpable mass. Psychiatric: Cooperative, appropriate mood & affect, normal judgment. Limitations: no limitations Course Vital Signs 10/07/18 10/07/18 19:40 20:51 Temperature 98.8 F 98.6 F Pulse Rate 105 H 93 Respiratory 20 18 Rate Blood Pressure 106/63 109/67 O2 Sat by Pulse 98 99 Oximetry Medical Decision Making - Medical Decision Making Well-appearing 23-year-old female presenting for erythema of the right breast. Mastitis on examination.Palpable mass or fluctuance. No concern for abscess at this time. Patient be treated with dicloxacillin. This is safe with breast- feeding. Patient is agreeable plan of care as well as discharge at this time. Symptomatically was discussed with patient as well as all return parameters. Patient is discharged after discussed the case with him provider Dr. Rosas Disposition Clinical Impression: Acute mastitis of right breast Disposition: HOME SELF-CARE Condition: Good Instructions (If sedation given, give patient instructions): Mastitis (ED) Additional Instructions: Please use medication as discussed. Please follow-up with family doctor in the next 2 days. Please return to emergency room if the symptoms increase or worsen or for any other concerns, persistent fever, increasing, pain swelling. Prescriptions: Dicloxacillin [Dynapen] 500 mg PO Q6H 10 Days #40 capsule Is patient prescribed a controlled substance at d/c from ED?: No Referrals: None,Stated [Primary Care Provider] - 1-2 days Time of Disposition: 19:57
[2018-10-07 20:54] VITALS: BP 109/67; PULSE 93; RESP 18; TEMP 98.6
== END 2018-10-07 20:54 | disposition home or self-care (01) ==
LOC: EC 19:38
DX: O91.22 Nonpurulent mastitis associated with the puerperium (principal)
CPT/HCPCS: 99282

== ENCOUNTER → 2018-10-25 | Outpatient (CLI) | payer OTHER | END | disposition home or self-care (01) | LOC: LABWHC1 15:30 | PROVIDERS: ATTEND Obstetrics & Gynecology | DX: N91.2 Amenorrhea, unspecified (principal) | CPT/HCPCS: 36415; 84702 ==